=== PATIENT | female | born 1995 | race Caucasian/White ===

== ENCOUNTER 2017-12-07 15:24 | Emergency (ER) | payer BC ==
[~2017-12-07] VITALS: Ht 170.2 cm; Wt 59.0 kg
[2017-12-07 15:49] VITALS: BP 147/79
[2017-12-07] MEDS ORDERED: IV NORMAL SALINE 1,000ML 1,000 ML IV SCH (16:00)
[2017-12-07] MEDS ORDERED: ONDANSETRON PF 4 MG/2 ML VIAL. IV ONE (16:00)
[2017-12-07 16:06] LABS: BASO # 0.1 x10^3/uL (0.0-0.2); BASO % 0 % (0-3); EOS % 0 % (0-3); HEMOGLOBIN 14.2 g/dL (12.0-15.5); LYMPH % 7 % (24-48); MEAN CORPUSCULAR HEMOGLOBIN 30 pg (25-35); MEAN CORPUSCULAR HGB CONC 35 g/dL (31-37); MEAN CORPUSCULAR VOLUME 88 fL (79-100); MONO # 0.3 x10^3/uL (0.0-1.1); MONO % 2 % (0-9); NEUT # 12.9 x10^3uL (1.8-7.7); NEUT % 90 % (31-73); PLATELET COUNT 270 x10^3/uL (140-400); RED BLOOD COUNT 4.68 x10^6/uL (3.50-5.40); RED CELL DISTRIBUTION WIDTH 12.5 % (11.5-14.5); WHITE BLOOD COUNT 14.3 x10^3/uL (4.0-11.0)
[2017-12-07 16:19] LABS: ALBUMIN 4.7 g/dL (3.4-5.0); ALBUMIN/GLOBULIN RATIO 1.6 (1.0-1.7); CALCIUM 9.7 mg/dL (8.5-10.1); CREATININE 0.9 mg/dL (0.6-1.0); GFR 78.3; POTASSIUM 3.5 mmol/L (3.5-5.1); TOTAL BILIRUBIN 0.7 mg/dL (0.2-1.0); TOTAL PROTEIN 7.7 g/dL (6.4-8.2)
[2017-12-07] MEDS ORDERED: METOCLOPRAMIDE HCL 10 MG/2 ML VIAL. IV ONE (16:45)
[2017-12-07] MEDS ORDERED: IV NORMAL SALINE 1,000ML 1,000 ML IV ONE (16:45)
--- NOTE | 2017-12-07 17:27 | PHYS DOC ---
Past History Past Medical History: No Pertinent History Smoking: Non-smoker Alcohol Use: Occasionally Drug Use: Marijuana Adult General Chief Complaint Chief Complaint: nausea and vomiting after drinking alcohol HPI HPI 22-year-old female patient brought in by her mother because of frequent episodes of nausea and vomiting since last night after drinking alcohol. Patient mother states she was with her boyfriend and had 5 shot of hard liquor in a long period of time and started to have nausea and vomiting since 2330 last night and had more than 20 episodes of vomiting without drinking or eating and drinking. Patient had active vomiting at arrival to ER and history was taking from her mother. Review of Systems Review of Systems Constitutional: Denies fever or chills [] Eyes: Denies change in visual acuity, redness, or eye pain [] HENT: Denies nasal congestion or sore throat [] Respiratory: Denies cough or shortness of breath [] Cardiovascular: No additional information not addressed in HPI [] GI: Reports abdominal pain, nausea, vomiting. Denies diarrhea : Denies dysuria or hematuria [] Musculoskeletal: Denies back pain or joint pain [] Integument: Denies rash or skin lesions [] Neurologic: Denies headache, focal weakness or sensory changes [] Endocrine: Denies polyuria or polydipsia [] All other systems were reviewed and found to be within normal limits, except as documented in this note. Current Medications Current Medications Current Medications Medications (Trade) Dose Ordered Sig/[place] Start Time Stop Time Status Last Admin Dose Admin Metoclopramide HCl (Reglan Vial) 10 mg 1X ONCE 12/07/17 16:45 12/07/17 16:48 DC 12/07/17 16:49 10 MG Ondansetron HCl (Zofran) 4 mg 1X ONCE 12/07/17 16:00 12/07/17 16:01 DC 12/07/17 16:01 4 MG Sodium Chloride 1,000 ml @ 1,000 mls/hr 1X ONCE 12/07/17 16:45 12/07/17 17:44 12/07/17 16:48 1,000 MLS/HR Allergies Allergies Allergies Coded Allergies Type Severity Reaction Last Updated Verified No Known Drug Allergies 12/07/17 No Physical Exam Physical Exam Constitutional: Moderate distress, non-toxic appearance, actively vomiting. [] HENT: Normocephalic, atraumatic, good gag reflex Eyes: PERRLA, EOMI, conjunctiva normal, no discharge. [] Neck: Normal range of motion, no tenderness, supple, no stridor. [] Cardiovascular:Heart rate regular rhythm, no murmur [] Lungs & Thorax: Bilateral breath sounds clear to auscultation [] Abdomen: Bowel sounds normal, soft, no tenderness, no masses, no pulsatile masses. [] Skin: Warm, dry, no erythema, no rash. [] Back: No tenderness, no CVA tenderness. [] Extremities: No tenderness, no cyanosis, no clubbing, ROM intact, no edema. [] Neurologic: Alert and oriented X 3, normal motor function, normal sensory function, no focal deficits noted. [] Psychologic: Unable to evaluate Current Patient Data Vital Signs Vital Signs Date Time Temp Pulse Resp B/P (MAP) Pulse Ox O2 Delivery O2 Flow Rate FiO2 12/07/17 15:49 Room Air 12/07/17 15:49 98.0 100 20 99 Lab Results Laboratory Tests Test 12/07/17 15:50 White Blood Count 14.3 x10^3/uL (4.0-11.0) H Red Blood Count 4.68 x10^6/uL (3.50-5.40) Hemoglobin 14.2 g/dL (12.0-15.5) Hematocrit 41.0 % (36.0-47.0) Mean Corpuscular Volume 88 fL (79-100) Mean Corpuscular Hemoglobin 30 pg (25-35) Mean Corpuscular Hemoglobin Concent 35 g/dL (31-37) Red Cell Distribution Width 12.5 % (11.5-14.5) Platelet Count 270 x10^3/uL (140-400) Neutrophils (%) (Auto) 90 % (31-73) H Lymphocytes (%) (Auto) 7 % (24-48) L Monocytes (%) (Auto) 2 % (0-9) Eosinophils (%) (Auto) 0 % (0-3) Basophils (%) (Auto) 0 % (0-3) Neutrophils # (Auto) 12.9 x10^3uL (1.8-7.7) H Lymphocytes # (Auto) 1.0 x10^3/uL (1.0-4.8) Monocytes # (Auto) 0.3 x10^3/uL (0.0-1.1) Eosinophils # (Auto) 0.0 x10^3/uL (0.0-0.7) Basophils # (Auto) 0.1 x10^3/uL (0.0-0.2) Maternal Serum HCG Beta Subunit < 1 mIU/mL (0-6) Sodium Level 140 mmol/L (136-145) Potassium Level 3.5 mmol/L (3.5-5.1) Chloride Level 104 mmol/L (98-107) Carbon Dioxide Level 22 mmol/L (21-32) Anion Gap 14 (6-14) Blood Urea Nitrogen 11 mg/dL (7-20) Creatinine 0.9 mg/dL (0.6-1.0) Estimated GFR (Cockcroft-Gault) 78.3 BUN/Creatinine Ratio 12 (6-20) Glucose Level 90 mg/dL (70-99) Calcium Level 9.7 mg/dL (8.5-10.1) Total Bilirubin 0.7 mg/dL (0.2-1.0) Aspartate Amino Transferase (AST) 21 U/L (15-37) Alanine Aminotransferase (ALT) 18 U/L (14-59) Alkaline Phosphatase 68 U/L (46-116) Total Protein 7.7 g/dL (6.4-8.2) Albumin 4.7 g/dL (3.4-5.0) Albumin/Globulin Ratio 1.6 (1.0-1.7) Lipase 130 U/L (73-393) Ethyl Alcohol Level < 10 mg/dL (0-10) EKG EKG [] Radiology/Procedures Radiology/Procedures [] Course & Med Decision Making Course & Med Decision Making Pertinent Labs reviewed. (See chart for details) Evaluation of patient in ER showed 22-year-old female patient frequent episodes of nausea and vomiting after drinking 5 shots of alcohol last night. Patient treated with 2 L of IV fluid and Zofran and Reglan and gradually her condition improved. Patient was able to tolerate oral intake and denied suicidal and homicidal ideation. Patient instructed to avoid of drinking alcohol and follow up with liquid diet for the next 24 hours. Dragon Disclaimer Dragon Disclaimer This electronic medical record was generated, in whole or in part, using a voice recognition dictation system. Departure Departure: Impression: Primary Impression: Acute gastritis Disposition: 01 HOME, SELF-CARE (at 1749) Condition: IMPROVED Referrals: PCPALVIN (PCP) Patient Instructions: Nausea and Vomiting Additional Instructions: Drink plenty of liquids Follow-up with your primary care physician in 3-5 days Return to ER if not getting better Scripts Metoclopramide Hcl (REGLAN) 10 Mg Tablet 1 TAB PO QID PRN for NAUSEA/VOMITING, #10 TAB Prov: STEPHANIE MOODY MD 12/07/17 STEPHANIE MOODY MD Dec 07, 2017 17:27
[2017-12-07 17:41] LABS: BILIRUBIN,URINE NEG (NEG); CLARITY,URINE CLEAR; COLOR,URINE YELLOW; GLUCOSE,URINE NEG (NEG); NITRITE,URINE NEG (NEG); UROBILINOGEN,URINE 1 mg/dL (0.2 mg/dL)
[2017-12-07 17:42] LABS: BACTERIA,URINE FEW /HPF (0-FEW); RBC,URINE RARE /HPF (0-2); SQUAMOUS EPITHELIAL CELL,UR FEW /LPF; WBC,URINE OCC /HPF (0-4)
[2017-12-07 17:47] LABS: BARBITURATES NEG (NEG); BENZODIAZEPINES NEG (NEG); CANNABINOIDS POS (NEG); COCAINE NEG (NEG); METHADONE NEG (NEG); OPIATES NEG (NEG); PHENCYCLIDINE NEG (NEG)
[2017-12-07 17:48] LABS: AMPHETAMINE/METHAMPHETAMINE NEG (NEG)
[2017-12-07] MEDS ORDERED: METO10TA81 PO (17:51)
== END 2017-12-07 18:00 | disposition home or self-care (01) ==
LOC: ER 15:24
DX: K29.00 Acute gastritis without bleeding (principal)
CPT/HCPCS: 36415; 80053; 80307; 81001; 83690; 84702; 85025; 96361; 96374; 96375; 99285; G0480; J2405; J2765; G0479; J7030